=== PATIENT | male | born 1960 | race Caucasian/White ===

== ENCOUNTER → 2018-11-13 11:28 | Outpatient (CLI) | payer OTHER, SELFPAY ==
[2018-11-16 14:43] LABS: PSA Free % 13 % (calc) (> 25); PSA, Total 6.3 ng/mL (< 4.1)
== END ==
PROVIDERS: Visit Provider Internal Medicine
DX: N40.1 Benign prostatic hyperplasia with lower urinary tract symptoms (principal)
CPT/HCPCS: 36415; 84153; 84154

== ENCOUNTER → 2019-02-04 16:15 | Outpatient (CLI) | payer OTHER, SELFPAY ==
[2019-02-04 18:08] LABS: Prostate Specific Antigen 3.76 ng/mL (0.10-4.00)
== END ==
PROVIDERS: Family Provider Internal Medicine; PCP Internal Medicine; Visit Provider Specialist
DX: N40.1 Benign prostatic hyperplasia with lower urinary tract symptoms (principal)
CPT/HCPCS: 36415; 84153